=== PATIENT | male | born 1995 | race American Indian/Alaskan Native ===

== ENCOUNTER 2019-08-06 22:08 | Observation (INO) | payer MEDICAID, OTHER ==
--- NOTE | 2019-08-06 22:51 | XRay Report ---
CHEST 1 VIEW INDICATION: Chest Pain. COMPARISON: None. FINDINGS: Support devices: None. Heart: Normal. Lungs/Pleura: There is a tiny left apical pneumothorax. No acute pulmonary findings. IMPRESSION: 1. Tiny left apical pneumothorax. COMMUNICATION: Time of Communication: 9:45 PM Licensed Practitioner Receiving Report: Dr. Wen Signer Name: Mir Izquierdo MD Signed: 08/06/2019 10:47 PM Workstation Name: [id number]
--- NOTE | 2019-08-06 23:07 | Emergency Department Report ---
HPI - General Chief Complaint: Chest Pain Time Seen by Provider: 08/06/19 22:56 - HPI HPI: Room 24 The patient is a 23-year-old male presenting with chief complaint of chest pain. Patient states symptoms began yesterday feeling a pressure in his left upper extremity/axilla. The patient states this morning he developed pain/tightness the left chest with some shortness of breath. Patient denies cough or any recent trauma Location: [See above] Duration: [See above] Quality: [See above] Severity: [See above] Timing: [See above] Context: [See above] Modifying factors: [See above] Associated signs and symptoms: [see above] ED Past Medical Hx - Past Medical History Previous Medical History?: No - Surgical History Past Surgical History?: Yes Additional Surgical History: Thyroid growth removal - Family History Family history: no significant - Social History Smoking Status: Never Smoker Substance Use Type: Marijuana ED Review of Systems ROS: Stated complaint: CP/TIGHTNESS Other details as noted in HPI Constitutional: no symptoms reported Eyes: denies: eye pain ENT: denies: throat pain Respiratory: shortness of breath. denies: cough Cardiovascular: chest pain Endocrine: no symptoms reported Gastrointestinal: denies: abdominal pain Genitourinary: denies: dysuria Musculoskeletal: denies: back pain Neurological: denies: headache Physical Exam - Physical Exam Physical Exam: GENERAL: The patient is well-developed well-nourished male sitting on stretcher not appearing to be in acute distress. [] HEENT: Normocephalic. Atraumatic. Extraocular motions are intact. Patient has moist mucous membranes. NECK: Supple. Trachea midline CHEST/LUNGS: Clear to auscultation. There is no respiratory distress noted. Breath sounds equal bilaterally HEART/CARDIOVASCULAR: Regular. There is no tachycardia. There is no gallop rub or murmur. ABDOMEN: Abdomen is soft, nontender. Patient has normal bowel sounds. There is no abdominal distention. SKIN: There is no rash. There is no edema. There is no diaphoresis. NEURO: The patient is awake, alert, and oriented. The patient is cooperative. The patient has normal speech MUSCULOSKELETAL: There is no evidence of acute injury. ED Course - Consultations Consultation #1: 08/06/19 23:04 Pulmonology paged 08/06/19 23:12 Case discussed with brownfield redevelopment site manager Dr. Guzman. States 100% nonrebreather may be exchanged for 4 L O2 nasal cannula. Have chest x-ray ordered in the morning and will consult ED Medical Decision Making - Lab Data Result diagrams: 08/06/19 23:04 08/06/19 23:04 Laboratory Tests 08/06/19 08/06/19 08/06/19 23:04 23:04 23:04 WBC 8.3 RBC 4.19 Hgb 13.3 Hct 40.3 MCV 96 H MCH 32 MCHC 33 RDW 12.5 L Plt Count 250 Lymph % (Auto) 36.2 H [place] % (Auto) 9.9 H Eos % (Auto) 1.0 Baso % (Auto) 0.6 Lymph # 3.0 [place] # 0.8 Eos # 0.1 Baso # 0.0 Seg Neutrophils % 52.3 Seg Neutrophils # 4.4 PT 14.9 INR 1.15 H APTT 31.4 Sodium 140 Potassium 3.8 Chloride 102.9 Carbon Dioxide 21 L Anion Gap 20 BUN 16 Creatinine 1.1 Estimated GFR > 60 BUN/Creatinine Ratio 15 Glucose 95 Calcium 9.2 Total Creatine Kinase CK-MB (CK-2) CK-MB (CK-2) Rel Index Troponin T 08/06/19 23:21 WBC RBC Hgb Hct MCV MCH MCHC RDW Plt Count Lymph % (Auto) [place] % (Auto) Eos % (Auto) Baso % (Auto) Lymph # [place]kes # Eos # Baso # Seg Neutrophils % Seg Neutrophils # PT INR APTT Sodium Potassium Chloride Carbon Dioxide Anion Gap BUN Creatinine Estimated GFR BUN/Creatinine Ratio Glucose Calcium Total Creatine Kinase 216 H CK-MB (CK-2) 1.2 CK-MB (CK-2) Rel Index 0.5 Troponin T < 0.010 - EKG Data -: EKG Interpreted by Me EKG shows normal: sinus rhythm Rate: normal - EKG Data When compared to previous EKG there are: previous EKG unavailable Interpretation: other (early repolarization) - Radiology Data Radiology results: report reviewed (chest x-ray), image reviewed (chest x-ray) interpreted by me: Chest x-ray-small apical pneumothorax on the left - Differential Diagnosis pneumothorax, pericarditis, GERD, costochondritis Critical care attestation.: If time is entered above; I have spent that time in minutes in the direct care of this critically ill patient, excluding procedure time. ED Disposition Clinical Impression: Spontaneous pneumothorax, Shortness of breath Disposition: OP ADMIT IP TO THIS HOSP Is pt being admited?: Yes Does the pt Need Aspirin: No Condition: Fair Referrals: LEONEL AVILA MD [Primary Care Provider] - 3-5 Days Time of Disposition: 00:14 (hospitalist paged (Dr. Lynette Pierre))
[2019-08-06 23:54] LABS: Creatine Kinase MB 1.2 ng/mL (0.0-4.0)
[2019-08-06 23:55] LABS: INR 1.15 (0.87-1.13)
[2019-08-06 23:56] LABS: Partial Thromboplastin Time 31.4 Sec. (24.2-36.6)
[2019-08-06 23:58] LABS: BUN/Creatinine Ratio 15; Blood Urea Nitrogen 16 mg/dL (9-20); Calcium 9.2 mg/dL (8.4-10.2)
[2019-08-06 23:59] LABS: Hemolysis Index 5
[2019-08-07 00:12] LABS: Basophils % (Auto) 0.6 % (0.0-1.8); Eosinophils # (Auto) 0.1 K/mm3 (0.0-0.4); Hematocrit 40.3 % (35.5-45.6); Hemoglobin 13.3 gm/dl (11.8-15.2); Lymphocytes % (Auto) 36.2 % (13.4-35.0); Mean Corpuscular HGB Conc 33 % (32-34); Mean Corpuscular Volume 96 fl (84-94); Monocytes # (Auto) 0.8 K/mm3 (0.0-0.8); Monocytes % (Auto) 9.9 % (0.0-7.3); Platelet Count 250 K/mm3 (140-440); Red Blood Count 4.19 M/mm3 (3.65-5.03); Red Cell Distribution Width 12.5 % (13.2-15.2)
[2019-08-07] MEDS ORDERED: ONDANSETRON 4 MG/2 ML INJ IV PRN (00:27)
[2019-08-07] MEDS ORDERED: ACETAMINOPHEN 325 MG TAB PO PRN (00:27)
--- NOTE | 2019-08-07 00:30 | History and Physical Report ---
History of Present Illness History of present illness: 23 year-old man with no medical history comes emergency room with complaints of shortness of breath and left upper chest pain that started today. He described the pain as dull, constant , no radiation, intensity 4/10, cannot identify exacerbating factors. Admits to nausea vomiting. Patient is being admitted for further evaluation of pneumothorax. Review Of Systems: Constitutional: no weight loss, chills, fever Ears, eyes, nose, mouth and throat: no nasal congestion, no nasal discharge, no sinus pressure, blurry vision, diplopia Neck: No neck pain or rigidity. Cardiovascular: no palpitations Respiratory:no cough, shortness of breath Gastrointestinal: No hematochezia, abdominal pain Genitourinary : no dysuria, frequency , hematuria Musculoskeletal: no muscle ache , joint pain Integumentary: no rash, no pruritis Neurological: no parathesias, focal weakness Endocrine: no cold or heat intolerance, no polyuria or polydipsia Hematologic/Lymphatic: no easy bruising, no easy bleeding, no gland swelling Allergic/Immunologic: no urticaria, no angioedema. PAST MEDICAL HISTORY: None PAST SURGICAL HISTORY: Removal of thyroid growth SOCIAL HISTORY: social alcohol , no drugs, tobacco FAMILY HISTORY: hypertension Medications and Allergies Allergies Allergy/AdvReac Type Severity Reaction Status Date / Time No Known Allergies Allergy Unverified 08/06/19 22:14 Exam - Physical Exam Narrative exam: Gen. appearance: Patient lying in bed, no apparent distress HEENT: Normocephalic, atraumatic, pupils equally round and reactive to light, ex traocular movement intact, and no sclericterus,. No JVD or thyromegaly or nodule,neck supple, no carotid bruit ,mucous membranes moist, no exudate or erythema Heart: S1, S2, regular rate and rhythm Lungs: Clear to auscultation bilaterally, breathing comfortable Abdomen: Positive bowel sounds, nontender, nondistended, no organomegaly Extremity: No edema, cyanosis, clubbing Skin: No rash, nodules, warm, dry Neuro: Oriented 2, cranial nerves II-12 intact, speech is fluent, motor and sensory intact - Constitutional Vitals: Temp Pulse Resp BP Pulse Ox 98.2 F 56 L 18 108/42 100 08/06/19 22:11 08/06/19 23:45 08/06/19 23:59 08/06/19 23:45 08/06/19 23:59 Results - Labs CBC & Chem 7: 08/06/19 23:04 08/06/19 23:04 Labs: Abnormal lab results 08/06/19 08/06/19 08/06/19 Range/Units 23:04 23:04 23:04 MCV 96 H (84-94) fl RDW 12.5 L (13.2-15.2) % Lymph % (Auto) 36.2 H (13.4-35.0) % [place] % (Auto) 9.9 H (0.0-7.3) % INR 1.15 H (0.87-1.13) Carbon Dioxide 21 L (22-30) mmol/L Total Creatine Kinase (55-170) units/L 08/06/19 Range/Units 23:21 MCV (84-94) fl RDW (13.2-15.2) % Lymph % (Auto) (13.4-35.0) % [place] % (Auto) (0.0-7.3) % INR (0.87-1.13) Carbon Dioxide (22-30) mmol/L Total Creatine Kinase 216 H (55-170) units/L - Imaging and Cardiology EKG: image reviewed Chest x-ray: report reviewed Assessment and Plan Assessment Spontaneous pneumothorax, small Supplemental oxygen, nebulizer treatment Do follow-up chest x-ray in the morning Pulmonary was consulted to see the patient DVT prophylaxis
[2019-08-07] MEDS ORDERED: oxyCODONE /ACETAMINOPHEN 5-325MG TAB PO ONE (06:13)
[2019-08-07] MEDS: IPRATROPIUM/ALBUTEROL SULFATE 3 ML AMPUL.NEB IH SCH ×3 (06:24→14:06)
--- NOTE | 2019-08-07 07:32 | XRay Report ---
CHEST 1 VIEW INDICATION: f/u ptx. COMPARISON: One day prior. FINDINGS: Support devices: None. Heart: Stable. Lungs/Pleura: Tiny left apical pneumothorax is unchanged. No pleural effusion. Lungs are clear. IMPRESSION: 1. No significant change. Signer Name: Mir Izquierdo MD Signed: 08/07/2019 7:28 AM Workstation Name: [id number]
--- NOTE | 2019-08-07 08:10 | Event Note ---
Date: 08/07/19 Diagnosis Spontaneous pneumothorax Tobacco abuse 23-year-old man with history of tobacco abuse who presents with chest pain shortness of breath. He was found to have a small apical pneumothorax. He received pain meds and oxygen. Repeat chest x-ray showed stable small pneumothorax. Tobacco abuse/dependence Smoking cessation counseling performed for 10 minutes, nicotine patches when necessary Preventative health counseling performed for 17 minutes Patient is discharged home with pain medications and nicotine patch, advised avoid smoking or heavy lifting.
[2019-08-07] MEDS ORDERED: ENOXAPARIN 40 MG/0.4 ML INJ SUB-Q SCH (10:00)
[2019-08-07] MEDS ORDERED: ENOXAPARIN 30 MG/0.3 ML INJ SUB-Q SCH (10:00)
[2019-08-07 13:07] VITALS: BP 116/60
== END 2019-08-07 16:07 | disposition home or self-care (01) ==
LOC: ED 22:08 → 3A 08-07 00:27
PROVIDERS: ADMIT Internal Medicine; ATTEND Internal Medicine
DX: J93.83 Other pneumothorax (principal)
CPT/HCPCS: 36415; 71045; 80048; 82550; 82553; 84484; 85025; 85610; 85730; 93005; 93010; 94640; 94760; 96372; 99284; G0378; J1650

== ENCOUNTER 2020-09-24 20:52 | Emergency (ER) | payer MEDICAID ==
--- NOTE | 2020-09-24 22:03 | Emergency Department Report ---
ED Chest Pain HPI - General Chief Complaint: Chest Pain Stated Complaint: CHEST PAIN Time Seen by Provider: 09/24/20 21:57 Source: patient Mode of arrival: Ambulatory Limitations: No Limitations - History of Present Illness Initial Comments: 25-year-old -Citizen Of [place] male patient presents with complaints of left-sided chest pain and shortness of breath x1 week. He states he has history of a spontaneous pneumothorax about 1 year ago and that his symptoms feel similar to that today. He denies any chest trauma, cough, nausea/vomiting/diarrhea, loss of taste/smell, or fever/chills/sweats. Pain worsens in his chest with deep inhalation and movement of his left arm per patient. He rates his pain as a 7/10 in severity and describes it as feeling like a balloon is filling up in his chest. No past heart or family heart history per patient. - Related Data Previous Rx's Medication Instructions Recorded Last Taken Type Acetaminophen/Codeine [Tylenol 1 tab PO Q6H PRN #14 tab 08/07/19 Unknown Rx /Codeine # 3 tab] Nicotine [Habitrol] 14 mg TD DAILY #30 patch 08/07/19 Unknown Rx Naproxen [Naprosyn] 500 mg PO BID PRN #14 tablet 09/25/20 Unknown Rx Allergies Allergy/AdvReac Type Severity Reaction Status Date / Time No Known Allergies Allergy Verified 08/07/19 00:34 Heart Score - HEART Score History: Slightly suspicious EKG: Normal Age: < 45 Risk factors: No known risk factors Troponin: < normal limit HEART Score: 0 - Critical Actions Critical Actions: 0-3 pts:0.9-1.7%risk of adverse cardiac event.Candidate for d ischarge ED Review of Systems ROS: Stated complaint: CHEST PAIN Other details as noted in HPI Constitutional: denies: chills, diaphoresis, fever, malaise Respiratory: shortness of breath. denies: cough Cardiovascular: chest pain. denies: palpitations, edema, syncope Gastrointestinal: denies: abdominal pain, nausea, vomiting Musculoskeletal: denies: joint swelling Skin: denies: change in color Neurological: denies: headache Hematological/Lymphatic: denies: easy bleeding, swollen glands ED Past Medical Hx - Past Medical History Previous Medical History?: Yes Hx Diabetes: No Hx Asthma: No Hx COPD: No Hx HIV: No Additional medical history: pneumonthorax - Surgical History Past Surgical History?: Yes Additional Surgical History: Thyroid growth removal - Social History Smoking Status: Current Every Day Smoker Substance Use Type: None - Medications Home Medications: Home Medications Medication Instructions Recorded Confirmed Last Taken Type Acetaminophen/Codeine [Tylenol 1 tab PO Q6H PRN #14 tab 08/07/19 Unknown Rx /Codeine # 3 tab] Nicotine [Habitrol] 14 mg TD DAILY #30 patch 08/07/19 Unknown Rx Naproxen [Naprosyn] 500 mg PO BID PRN #14 tablet 09/25/20 Unknown Rx ED Physical Exam - General Limitations: No Limitations General appearance: alert, in no apparent distress - Head Head exam: Present: atraumatic, normocephalic - Eye Eye exam: Present: normal appearance. Absent: scleral icterus - ENT ENT exam: Present: normal exam - Neck Neck exam: Present: normal inspection - Respiratory Respiratory exam: Present: normal lung sounds bilaterally, chest wall tenderness. Absent: respiratory distress - Cardiovascular Cardiovascular Exam: Present: regular rate, normal rhythm. Absent: systolic murmur, diastolic murmur, rubs, gallop - GI/Abdominal GI/Abdominal exam: Present: soft. Absent: distended, tenderness, guarding, rebound - Back Exam Back exam: Present: full ROM - Neurological Exam Neurological exam: Present: alert, oriented X3, normal gait - Psychiatric Psychiatric exam: Present: normal affect, normal mood - Skin Skin exam: Present: warm, dry, intact, normal color. Absent: rash ED Course Vital Signs 09/24/20 21:54 Temperature 99.0 F Pulse Rate 65 Respiratory 16 Rate Blood Pressure 108/55 O2 Sat by Pulse 98 Oximetry ED Medical Decision Making - Lab Data Result diagrams: 09/24/20 22:19 09/24/20 22:19 Lab Results 09/24/20 09/24/20 Range/Units 22:19 22:19 WBC 6.6 (4.5-11.0) K/mm3 RBC 4.46 (3.65-5.03) M/mm3 Hgb 15.0 (11.8-15.2) gm/dl Hct 43.8 (35.5-45.6) % MCV 98 H (84-94) fl MCH 34 H (28-32) pg MCHC 34 (32-34) % RDW 12.6 L (13.2-15.2) % Plt Count 257 (140-440) K/mm3 Lymph % (Auto) 36.3 H (13.4-35.0) % [place] % (Auto) 13.2 H (0.0-7.3) % Eos % (Auto) 1.1 (0.0-4.3) % Baso % (Auto) 0.5 (0.0-1.8) % Lymph # (Auto) 2.4 (1.2-5.4) K/mm3 [place] # (Auto) 0.9 H (0.0-0.8) K/mm3 Eos # (Auto) 0.1 (0.0-0.4) K/mm3 Baso # (Auto) 0.0 (0.0-0.1) K/mm3 Seg Neutrophils % 48.9 (40.0-70.0) % Seg Neutrophils # 3.2 (1.8-7.7) K/mm3 ESR 1 (0-20) mm/Hr Sodium 142 (137-145) mmol/L Potassium 4.3 (3.6-5.0) mmol/L Chloride 103.4 (98-107) mmol/L Carbon Dioxide 30 (22-30) mmol/L Anion Gap 13 mmol/L BUN 12 (9-20) mg/dL Creatinine 1.1 (0.8-1.3) mg/dL Estimated GFR > 60 ml/min BUN/Creatinine Ratio 11 % Glucose 89 (75-100) mg/dL Calcium 9.2 (8.4-10.2) mg/dL Total Bilirubin 0.80 (0.1-1.2) mg/dL AST 17 (5-40) units/L ALT 10 (7-56) units/L Alkaline Phosphatase 51 (35-129) units/L Troponin T < 0.010 (0.00-0.029) ng/mL Total Protein 7.2 (6.3-8.2) g/dL Albumin 4.5 (3.9-5) g/dL Albumin/Globulin Ratio 1.7 % - EKG Data EKG shows normal: sinus rhythm - EKG Data Interpretation: nonspecific ST-T wave hank (Likely early repolarization) - Radiology Data Radiology results: report reviewed CHEST 2 VIEWS INDICATION: L chest pain, SOB, hx of spontaneous pneumothorax. COMPARISON: None. FINDINGS: Support devices: None. Heart: Within normal limits. Lungs/Pleura: No acute air space or interstitial disease. No significant pleural effusion. IMPRESSION: No acute findings. - Medical Decision Making 25-year-old -Citizen Of [place] male patient presents with complaints of left-sided chest pain and shortness of breath x1 week. He states he has history of a spontaneous pneumothorax about 1 year ago and that his symptoms feel similar to that today. He denies any chest trauma, cough, nausea/vomiting/diarrhea, loss of taste/smell, or fever/chills/sweats. Pain worsens in his chest with deep inhalation and movement of his left arm per patient. He rates his pain as a 7/10 in severity and describes it as feeling like a balloon is filling up in his chest. No past heart or family heart history per patient. Heart score = 0. CBC, CMP, and troponin are normal. Chest x-ray is normal. EKG is normal. Pain is reproducible with palpation. PERC score = 0 will treat for costochondritis and recommend follow-up with primary care doctor in 2 days. His vitals are normal, he is well-appearing, he is stable for discharge home. Strict return precautions were discussed in detail with patient who verbalized understanding. Critical care attestation.: If time is entered above; I have spent that time in minutes in the direct care of this critically ill patient, excluding procedure time. ED Disposition Clinical Impression: Other chest pain Disposition: DC-01 TO HOME OR SELFCARE Is pt being admited?: No Condition: Stable Instructions: Nonspecific Chest Pain, Adult, Costochondritis, Chest Pain (ED) Prescriptions: Naproxen [Naprosyn] 500 mg PO BID PRN #14 tablet PRN Reason: pain Referrals: [facility] [Provider Group] - 2-3 Days
[2020-09-24 22:06] VITALS: BP 108/55
[2020-09-24 22:42] LABS: Basophils % (Auto) 0.5 % (0.0-1.8); Eosinophils # (Auto) 0.1 K/mm3 (0.0-0.4); Eosinophils % (Auto) 1.1 % (0.0-4.3); Hematocrit 43.8 % (35.5-45.6); Lymphocytes # (Auto) 2.4 K/mm3 (1.2-5.4); Lymphocytes % (Auto) 36.3 % (13.4-35.0); Mean Corpuscular HGB Conc 34 % (32-34); Mean Corpuscular Volume 98 fl (84-94); Monocytes # (Auto) 0.9 K/mm3 (0.0-0.8); Monocytes % (Auto) 13.2 % (0.0-7.3); Platelet Count 257 K/mm3 (140-440); Red Blood Count 4.46 M/mm3 (3.65-5.03); Red Cell Distribution Width 12.6 % (13.2-15.2)
--- NOTE | 2020-09-24 22:52 | XRay Report ---
CHEST 2 VIEWS INDICATION: L chest pain, SOB, hx of spontaneous pneumothorax. COMPARISON: None. FINDINGS: Support devices: None. Heart: Within normal limits. Lungs/Pleura: No acute air space or interstitial disease. No significant pleural effusion. IMPRESSION: No acute findings. Signer Name: Ari Nix MD Signed: 09/24/2020 10:47 PM Workstation Name: [id number]
[2020-09-24 23:04] LABS: Alanine Aminotransferase 10 units/L (7-56); Albumin 4.5 g/dL (3.9-5); BUN/Creatinine Ratio 11; Blood Urea Nitrogen 12 mg/dL (9-20); Calcium 9.2 mg/dL (8.4-10.2); Hemolysis Index 26
[2020-09-24 23:25] LABS: Erythrocyte Sedimentation Rate 1 mm/Hr (0-20)
== END 2020-09-25 01:10 | disposition home or self-care (01) ==
LOC: ED 20:52
DX: R07.89 Other chest pain (principal); R06.02 Shortness of breath; F17.200 Nicotine dependence, unspecified, uncomplicated; Z98.890 Other specified postprocedural states; Z79.899 Other long term (current) drug therapy
CPT/HCPCS: 36415; 71046; 80053; 84484; 85025; 85652; 93005